=== PATIENT | male | born 1985 | race Caucasian/White ===

== ENCOUNTER → 2022-08-29 12:37 | Outpatient (CLI) | payer BC, SELFPAY ==
--- NOTE | 2022-08-29 12:39 | DI.CT.S_ITS ---
PROCEDURE: CT ABDOMEN PELVIS W CON INDICATIONS: groin LT, r/o hernia TECHNIQUE: After the administration of intravenous contrast, axial sections acquired from the lung bases to the pubic symphysis. Coronal and sagittal reformats were performed. For radiation dose reduction, the following was used: automated exposure control, adjustment of mA and/or kV according to patient size. COMPARISON: None. FINDINGS: Image quality: Excellent. Lung bases: Unremarkable. Heart: No significant findings. ABDOMEN: Liver: Unremarkable. Gallbladder: Unremarkable. Biliary ducts: Unremarkable. Pancreas: Unremarkable. Spleen: Unremarkable. Adrenal Glands: Unremarkable. Kidneys and Ureters: Unremarkable. Stomach and Bowel: Stomach, small bowel loops, and colon are unremarkable. Peritoneum: No abnormal intraperitoneal fluid. No free air. Ventral Wall: No hernias. Abdominal Nodes: No retroperitoneal or mesenteric adenopathy by size criteria. Vessels: Aorta and inferior vena cava are normal in size. PELVIS: Pelvic Organs: The left gonadal artery is prominent, and appears potentially to be enlarged as it travels in the inguinal canal. There is a tangle of vessels present in the left hemiscrotum. There are mild bilateral hydroceles. Bladder: Unremarkable. Pelvic Nodes: No enlarged lymph nodes. Miscellaneous: No hernias are seen. Bones: Unremarkable. IMPRESSION: 1. The left gonadal artery appears prominent with potentially increased flow as a travels through the inguinal canal. There is a tangle of prominent vessels in the left hemiscrotum. Findings may potentially represent findings from epididymitis or epididymitis/orchitis, or the presence of a varicocele with prominent feeding artery. 2. No inguinal hernia identified. Comment: Consider further evaluation with scrotal ultrasound. Dictated by: Trent Hammond M.D. on 08/29/2022 at 14:34 Approved by: Trent Hammond M.D. on 08/29/2022 at 14:44
== END ==
PROVIDERS: Referring Provider Family Medicine; Visit Provider Family Medicine
DX: R10.32 Left lower quadrant pain (principal)
CPT/HCPCS: 74177; Q9967

== ENCOUNTER → 2022-08-30 14:40 | Outpatient (CLI) | payer OTHER, SELFPAY ==
[2022-08-30 15:59] LABS: Appearance Urine UA CLEAR; Bilirubin Urine UA NEGATIVE (NEGATIVE); Color Urine UA YELLOW; Glucose Urine UA NEGATIVE (Negative); Ketones Urine UA TRACE (NEGATIVE); Leukocyte Esterase Urine UA NEGATIVE (NEGATIVE); Nitrite Urine UA NEGATIVE (Negative); Occult Blood Urine UA NEGATIVE (Negative); Protein Urine UA NEGATIVE (Negative); Specific Gravity Urine UA 1.015 (1.000-1.035); Urobilinogen Urine UA 0.2 E.U./dL (0.2); pH Urine UA 7.5 (4.5-8.0)
[2022-08-30 16:14] LABS: Bacteria Urine None Seen; RBC Urine None Seen (0-5/HPF); Squamous Epithelial Cell Urine None Seen (0-5/HPF); WBC Urine None Seen (0-5/HPF)
[2022-08-30 16:15] LABS: Culture Indicated Urine Cult Not Indicated
[2022-08-30 17:26] LABS: Urine N gonorrhoeae NOT DETECTED
[2022-08-30 17:30] LABS: Urine Chlamydia NOT DETECTED
== END ==
PROVIDERS: PCP Family Medicine; Referring Provider Family Medicine; Visit Provider Family Medicine
DX: N50.82 Scrotal pain (principal)
CPT/HCPCS: 81001; 87491; 87591